=== PATIENT | male | born 2000 | race Two or more races ===

== ENCOUNTER 2023-03-19 07:57 | Inpatient (IN) | payer MEDICAID ==
[~2023-03-19] VITALS: Ht 185.4 cm; Wt 150.0 kg
[2023-03-19 08:24] LABS: BASOPHILS % (AUTO) 0.3 % (0.0-2.0); EOSINOPHILS % (AUTO) 0.1 % (1.0-6.0); HEMATOCRIT 41.5 % (41-53); HEMOGLOBIN 14.6 g/dL (13.5-17.5); LYMPHOCYTES # (AUTO) 0.9 K/uL (1.0-4.8); LYMPHOCYTES % (AUTO) 8.3 % (22.0-44.0); MEAN CORPUSCULAR HEMOGLOBIN 28.7 pg (26.0-34.0); MEAN CORPUSCULAR HGB CONC 35.3 G/dL (31.0-37.0); MEAN CORPUSCULAR VOLUME 81 fL (80-100); MONOCYTES # (AUTO) 1.1 K/uL (0.1-1.0); MONOCYTES % (AUTO) 9.7 % (2.0-9.0); NEUTROPHILS # (AUTO) 9.2 K/uL (1.8-7.7); NEUTROPHILS % (AUTO) 81.6 % (40.0-70.0); PLATELET COUNT (AUTO) 337 K/uL (150-450); RED CELL DISTRIBUTION WIDTH 12.8 % (11.5-14.5); WHITE BLOOD COUNT (AUTO) 11.2 K/uL (4.5-11.0)
[2023-03-19 08:32] LABS: ANION GAP 12 mmol/L (8-16); CALCIUM, TOTAL 9.1 mg/dL (8.8-10.5); CARBON DIOXIDE 24 mmol/L (22-29); CHLORIDE 102 mmol/L (98-107); CREATININE 1.11 mg/dL (0.60-1.30); GLOMERULAR FILTR. RATE CALC > 60 mL/min (>60); GLUCOSE,RANDOM 107 mg/dL (70-110); POTASSIUM 3.2 mmol/L (3.5-5.1); SODIUM SERUM 138 mmol/L (136-145); UREA NITROGEN, BLOOD 10 mg/dL (7-18)
[2023-03-19 08:42] LABS: ALCOHOL, BLOOD (SERUM) < 3 mg/dL (0-10)
[2023-03-19 08:44] LABS: ALANINE AMINOTRANSFERASE 42 U/L (12-78); ALBUMIN 4.1 g/dL (3.4-5.0); ALKALINE PHOSPHATASE 64 U/L (46-116); ASPARTATE AMINOTRANSFERASE 28 U/L (15-37); BILIRUBIN,TOTAL 1.4 mg/dL (0.1-1.0); TOTAL PROTEIN, SERUM 7.6 g/dL (6.4-8.2)
[2023-03-19] MEDS: HALOPERIDOL LACTATE 5 MG/ML VIAL IM ONE (09:45)
[2023-03-19] MEDS: POTASSIUM CHLORIDE 10% 40 MEQ/30 ML LIQUID UDCUP PO ONE (09:46)
[2023-03-19] MEDS: DiphenhydrAMINE HCL 50 MG/ML VIAL IM ONE (09:46)
[2023-03-19] MEDS: LORazepam 2 MG/ML VIAL IM ONE ×2 (09:46→11:46)
[2023-03-19 11:39] LABS: PH,URINE DRUG SCREEN 6.5 (5.0-8.0)
[2023-03-19] MEDS: ZIPRASIDONE MESYLATE 20 MG/VIAL IM ONE (11:45)
[2023-03-19 11:57] LABS: ALCOHOL, URINE DRUG SCREEN NEGATIVE (NEGATIVE); AMPHET/METH SCREEN,URINE NEGATIVE (NEGATIVE); BARBITURATE SCREEN, URINE NEGATIVE (NEGATIVE); BENZODIAZEPINES SCREEN,URINE POSITIVE (NEGATIVE); CANNABINOID SCREEN,URINE NEGATIVE (NEGATIVE); COCAINE SCREEN,URINE NEGATIVE (NEGATIVE); METHADONE SCREEN, URINE NEGATIVE (NEGATIVE); OPIATE SCREEN,URINE NEGATIVE (NEGATIVE); PHENCYCLIDINE SCREEN,URINE NEGATIVE (NEGATIVE)
[2023-03-19 15:50] LABS: COVID AG,FIA SOURCE NASAL SWAB
[2023-03-19 16:10] LABS: SARS-COV2 (COVID) ANTIGEN,FIA Negative (Negative)
[2023-03-20] MEDS: LORazepam 2 MG TABLET PO PRN (04:49)
[2023-03-20] MEDS: HALOPERIDOL 5 MG TABLET PO PRN (04:49)
[2023-03-20] MEDS ORDERED: LORazepam 2 MG/ML VIAL ONE (16:08)
[2023-03-20] MEDS ORDERED: DiphenhydrAMINE HCL 50 MG/ML VIAL ONE (16:08)
[2023-03-20] MEDS ORDERED: HALOPERIDOL LACTATE 5 MG/ML VIAL ONE (16:09)
[2023-03-20] MEDS: HALOPERIDOL LACTATE 5 MG/ML VIAL IM ONE (16:19)
[2023-03-20] MEDS: DiphenhydrAMINE HCL 50 MG/ML VIAL IM ONE (16:19)
[2023-03-20] MEDS: LORazepam 2 MG/ML VIAL IM ONE (16:19)
[2023-03-21] MEDS: HALOPERIDOL LACTATE 5 MG/ML VIAL IM ONE ×2 (08:57→16:30)
[2023-03-21] MEDS: LORazepam 2 MG/ML VIAL IM ONE ×2 (08:57→16:30)
[2023-03-21] MEDS: DiphenhydrAMINE HCL 50 MG/ML VIAL IM ONE ×2 (08:57→16:30)
[2023-03-21] MEDS: POTASSIUM CHLORIDE 20 MEQ ER TABLET PO ONE (08:58)
[2023-03-21] MEDS ORDERED: LORazepam 2 MG/ML VIAL ONE (16:08)
[2023-03-21] MEDS ORDERED: HALOPERIDOL LACTATE 5 MG/ML VIAL ONE (16:08)
[2023-03-21] MEDS ORDERED: DiphenhydrAMINE HCL 50 MG/ML VIAL ONE (16:08)
[2023-03-21 18:07] VITALS: BP 92/43; PULSE 100; RESP 17; TEMP 97
[2023-03-21 22:45] VITALS: BP 132/81; PULSE 84; RESP 18; TEMP 97.8
[2023-03-22 10:43] VITALS: BP 141/80; PULSE 100; RESP 18; TEMP 97.6; O2SAT 98
== END 2023-03-22 12:18 | disposition left against medical advice (07) | DRG 751 ==
LOC: EMS 08:01 → B3A 03-21 10:52
PROVIDERS: ADMIT Psychiatry & Neurology Child & Adolescent Psychiatry; ATTEND Psychiatry & Neurology Child & Adolescent Psychiatry
PROC: GZ51ZZZ Individual Psychotherapy, Behavioral (ICD-10-PCS; principal; 2023-03-21)
DX: F29 Unspecified psychosis not due to a substance or known physiological condition (principal); E66.9 Obesity, unspecified; E87.6 Hypokalemia; F12.90 Cannabis use, unspecified, uncomplicated; Z68.41 Body mass index [BMI] 40.0-44.9, adult
CPT/HCPCS: 80053; 80307; 85025; G0480; J1200; J1630; J2060; J3486